=== PATIENT | female | born 1985 | race Native Hawaiian/Other Pacific Islander ===

== ENCOUNTER 2017-02-24 12:18 | Observation (INO) | payer OTHER ==
[~2017-02-24] VITALS: Ht 162.6 cm; Wt 148.1 kg
[~2017-02-24 12:18] MED LIST: LAMICTAL200 MG PO; PANT40TA PO; ZANTAC 75 PO
[2017-02-24 14:33] LABS: PLATELET COUNT 405 K/uL (152-353)
[2017-02-24 14:45] LABS: POTASSIUM 3.8 mmol/L (3.6-5.2); SODIUM 133 mmol/L (136-145)
[2017-02-24 16:00] VITALS: BP 156/81; TEMP 97.6
[2017-02-24 16:50] VITALS: BP 145/69; TEMP 97.5; Ht 162.6 cm; Wt 148.1 kg
[2017-02-24] MEDS ORDERED: FLUOXETINE20 MG PO (17:15)
[2017-02-24] MEDS ORDERED: MELATONIN5 M2 OR (17:18)
[2017-02-24] MEDS ORDERED: MONTELUKAST SOD10 MG PO (17:22)
[2017-02-24] MEDS ORDERED: GLUMETZA500 MG PO (18:05)
[2017-02-24 20:00] VITALS: BP 167/83; TEMP 97.6
[2017-02-25] VITALS: BP 148/81; TEMP 98.5
[2017-02-25 04:00] VITALS: BP 163/83; TEMP 97.4
[2017-02-25 08:25] VITALS: BP 147/93; TEMP 98.6
[2017-02-25 12:10] VITALS: BP 150/92; TEMP 98.3
[2017-02-25 12:17] LABS: PLATELET COUNT 386 K/uL (152-353)
[2017-02-25 12:28] LABS: POTASSIUM 3.5 mmol/L (3.6-5.2); SODIUM 139 mmol/L (136-145)
[2017-02-25 16:00] VITALS: BP 127/76; TEMP 98
[2017-02-25 20:00] VITALS: BP 166/98; TEMP 97.4
[2017-02-26] VITALS: BP 145/90; TEMP 97.7
[2017-02-26 04:00] VITALS: BP 126/81; TEMP 97.4
[2017-02-26 08:00] VITALS: BP 143/99; TEMP 98
== END 2017-02-26 11:35 | disposition home or self-care (01) ==
LOC: MED/SURG 12:18
PROVIDERS: ADMIT Family Medicine
DX: J15.1 Pneumonia due to Pseudomonas (principal); J45.901 Unspecified asthma with (acute) exacerbation
CPT/HCPCS: 80053; 85027; 87040; 87070; 87077; 87185; 87186; 87205; 90715; 93005; 94640; 94664; 94668; 94760; 96365; 96366; 99220; G0378; G0379; J0696; J2930

== ENCOUNTER 2017-03-12 10:47 | Outpatient (CLI) | payer OTHER ==
[~2017-03-12 10:47] MED LIST changes: +FLUOXETINE20 MG PO; +GLUMETZA500 MG PO; +MELATONIN5 M2 OR; +MONTELUKAST SOD10 MG PO
== END 2017-03-12 12:00 | disposition home or self-care (01) ==
LOC: RAD 10:47
DX: M25.561 Pain in right knee (principal)

== ENCOUNTER 2018-10-10 10:45 | Outpatient (CLI) | payer OTHER | END 2018-10-10 20:33 | disposition home or self-care (01) | LOC: RAD 10:45 | DX: J44.1 Chronic obstructive pulmonary disease with (acute) exacerbation (principal) ==

== ENCOUNTER 2020-05-17 10:51 | Emergency (ER) | payer OTHER ==
[~2020-05-17] VITALS: Ht 160 cm; Wt 127.0 kg
[2020-05-17 10:51] VITALS: TEMP 98.3
[2020-05-17 11:53] LABS: PLATELET COUNT 430 K/uL (152-353)
[2020-05-17 12:06] LABS: POTASSIUM 4.6 mmol/L (3.6-5.2); SODIUM 139 mmol/L (136-145)
[2020-05-17 15:20] VITALS: BP 134/86
== END 2020-05-17 15:20 | disposition home or self-care (01) ==
LOC: ED 11:12
PROVIDERS: Family Medicine
DX: G25.2 Other specified forms of tremor (principal); G40.109 Localization-related (focal) (partial) symptomatic epilepsy and epileptic syndromes with simple partial seizures, not intractable, without status epilepticus; Z11.59 Encounter for screening for other viral diseases
CPT/HCPCS: 36415; 80053; 81000; 82150; 82553; 83690; 83880; 84484; 85027; 87502; 87635; 87651; 99283; U00003

== ENCOUNTER 2020-06-11 09:02 | Outpatient (CLI) | payer OTHER | END 2020-06-11 23:18 | disposition home or self-care (01) | LOC: MRI 09:02 | DX: S09.90XA Unspecified injury of head, initial encounter (principal) ==

== ENCOUNTER 2020-07-12 10:28 | Outpatient (CLI) | payer OTHER | END 2020-07-12 23:13 | disposition home or self-care (01) | LOC: RAD 10:28 | DX: M79.671 Pain in right foot (principal) ==

== ENCOUNTER 2020-10-18 12:48 | Outpatient (CLI) | payer OTHER ==
[~2020-10-18] VITALS: Ht 165.1 cm; Wt 136.1 kg
[2020-10-18 13:51] LABS: PLATELET COUNT 341 K/uL (152-353)
[2020-10-18 14:10] LABS: POTASSIUM 4.3 mmol/L (3.6-5.2)
== END 2020-10-18 20:07 | disposition home or self-care (01) ==
LOC: INF 12:48
PROVIDERS: ATTEND Family Medicine
DX: U07.1 COVID-19 (principal); J45.998 Other asthma
CPT/HCPCS: 36591; 80053; 85027; 96365; Q0239

== ENCOUNTER 2021-04-01 12:48 | Emergency (ER) | payer OTHER ==
[~2021-04-01] VITALS: Ht 162.6 cm; Wt 159.7 kg
[2021-04-01 13:38] LABS: PLATELET COUNT 381 K/uL (152-353)
[2021-04-01 13:49] LABS: POTASSIUM 3.9 mmol/L (3.6-5.2)
[2021-04-02 01:00] LABS: PARTIAL THROMBOPLASTIN TIME 25.1 SECONDS (24.5-33.6)
[2021-04-02 01:40] VITALS: TEMP 97.9
[2021-04-02 02:50] VITALS: BP 118/69
== END 2021-04-02 02:50 | disposition short-term general hospital (02) ==
LOC: ED 12:48
PROVIDERS: Family Medicine
PROC: 0T9B70Z Drainage of Bladder with Drainage Device, Via Natural or Artificial Opening (ICD-10-PCS; principal; 2021-04-01)
DX: R41.82 Altered mental status, unspecified (principal); Z11.52 Encounter for screening for COVID-19
CPT/HCPCS: 36415; 51702; 80053; 80307; 80320; 80329; 81000; 85027; 85610; 85730; 87088; 87490; 87590; 87635; 93005; 96360; 96372; 96374; 99285; J1630; J2405; J3486; U0003

== ENCOUNTER 2021-12-08 14:18 | Outpatient (CLI) | payer OTHER ==
[2021-12-08 14:52] LABS: PLATELET COUNT 453 K/uL (152-353)
[2021-12-08 14:59] LABS: POTASSIUM 3.6 mmol/L (3.6-5.2)
== END 2021-12-08 19:06 | disposition home or self-care (01) ==
LOC: RAD 14:18
PROVIDERS: ATTEND Nurse Practitioner Family
DX: Z03.89 Encounter for observation for other suspected diseases and conditions ruled out (principal); F44.5 Conversion disorder with seizures or convulsions
CPT/HCPCS: 36415; 80053; 82542; 82728; 85027; 85379; 86140

== ENCOUNTER 2021-12-31 12:59 | Observation (INO) | payer OTHER ==
[~2021-12-31] VITALS: Ht 162.6 cm; Wt 158.4 kg
[~2021-12-31 12:59] MED LIST changes: -PANT40TA PO; +PANTOPRAZOLE SO40 M2 PO
[2021-12-31 13:56] LABS: PLATELET COUNT 301 K/uL (152-353)
[2021-12-31 14:13] LABS: POTASSIUM 3.7 mmol/L (3.6-5.2); SODIUM 144 mmol/L (136-145)
[2021-12-31 14:24] VITALS: BP 118/88; TEMP 98.3; Ht 162.6 cm; Wt 158.4 kg
[2021-12-31 16:00] VITALS: BP 115/82; TEMP 98.3
[2021-12-31] MEDS ORDERED: FLONASE SE27.5 MCG/S NAS (16:24)
[2021-12-31] MEDS ORDERED: MOBIC15 MG PO (16:25)
[2021-12-31] MEDS ORDERED: VITAMIN D35000 UNI1 PO (16:26)
[2021-12-31] MEDS ORDERED: LEVO0.0529 PO (16:26)
[2021-12-31] MEDS ORDERED: FLUTMIS14 INH (16:27)
[2021-12-31] MEDS ORDERED: CIPROFLOXACIN/D1 SUS OTIC (16:28)
[2021-12-31 20:00] VITALS: BP 130/78; TEMP 97.3
[2022-01-01] VITALS: BP 146/83; TEMP 97.3
[2022-01-01 04:00] VITALS: BP 104/60; TEMP 97.4
[2022-01-01 05:38] LABS: PLATELET COUNT 327 K/uL (152-353)
[2022-01-01 05:52] LABS: POTASSIUM 3.4 mmol/L (3.6-5.2)
[2022-01-01 08:00] VITALS: BP 129/78; TEMP 97.6
[2022-01-01] MEDS ORDERED: SPIRIVA HANDIH18 MCG INH (08:02)
[2022-01-01] MEDS ORDERED: METF500T PO (08:06)
[2022-01-01] MEDS ORDERED: NYST100010 EX (08:08)
[2022-01-01] MEDS ORDERED: ATIVAN2 MG PO (08:09)
[2022-01-01] MEDS ORDERED: KETOROLAC0.5 % OPTH (08:10)
[2022-01-01] MEDS ORDERED: PREDNISOLONE ACET1 % OPTH (08:13)
[2022-01-01] MEDS ORDERED: TRAMADOL HYDROC50 MG PO (08:16)
[2022-01-01] MEDS ORDERED: PROMETHAZINE PO (08:16)
[2022-01-01] MEDS ORDERED: ONDA4TAB3 PO (08:17)
[2022-01-01] MEDS ORDERED: ARIPIPRAZOLE10 MG PO (08:19)
[2022-01-01] MEDS ORDERED: LAMOTRIGINE200 MG PO (08:20)
[2022-01-01] MEDS ORDERED: FLUOXETINE20 M1 PO (08:21)
[2022-01-01] MEDS ORDERED: MONTELUKAST SOD10 MG PO (08:21)
[2022-01-01 12:00] VITALS: BP 130/65; TEMP 98.4
== END 2022-01-01 13:28 | disposition home or self-care (01) ==
LOC: MED/SURG 12:59
PROVIDERS: ADMIT Family Medicine; ATTEND Family Medicine
DX: J44.0 Chronic obstructive pulmonary disease with (acute) lower respiratory infection (principal); J18.8 Other pneumonia, unspecified organism; J45.998 Other asthma; J44.1 Chronic obstructive pulmonary disease with (acute) exacerbation; R07.89 Other chest pain; I10 Essential (primary) hypertension; E03.8 Other specified hypothyroidism; E66.01 Morbid (severe) obesity due to excess calories; Z68.43 Body mass index [BMI] 50.0-59.9, adult
CPT/HCPCS: 80053; 82550; 83735; 84100; 84484; 85027; 87040; 87635; 90686; 90732; 93005; 94640; 94664; 94760; 96367; 96372; 96374; 96375; 99220; G0378; G0379; J0456; J0696; J2930; U0003

== ENCOUNTER 2022-06-19 13:09 | Outpatient (CLI) | payer OTHER ==
[~2022-06-19 13:09] MED LIST changes: +ARIPIPRAZOLE10 MG PO; +ATIVAN2 MG PO; +CIPROFLOXACIN/D1 SUS OTIC; +FLONASE SE27.5 MCG/S NAS; +FLUOXETINE20 M1 PO; +FLUTMIS14 INH; +KETOROLAC0.5 % OPTH; +LAMOTRIGINE200 MG PO; +LEVO0.0529 PO; +METF500T PO; +MOBIC15 MG PO; +NYST100010 EX; +ONDA4TAB3 PO; +PREDNISOLONE ACET1 % OPTH; +PROMETHAZINE PO; +SPIRIVA HANDIH18 MCG INH; +TRAMADOL HYDROC50 MG PO; +VITAMIN D35000 UNI1 PO
== END 2022-06-19 18:59 | disposition home or self-care (01) ==
LOC: RAD 13:09
PROVIDERS: ATTEND Family Medicine
DX: M25.561 Pain in right knee (principal)

== ENCOUNTER 2022-07-28 12:51 | Outpatient (CLI) | payer OTHER ==
[2022-07-28 13:07] LABS: PLATELET COUNT 374 K/uL (152-353)
[2022-07-28 13:14] LABS: POTASSIUM 4.8 mmol/L (3.6-5.2)
== END 2022-07-28 20:23 | disposition home or self-care (01) ==
LOC: LABW 12:51
PROVIDERS: ATTEND Nurse Practitioner Family
DX: E11.65 Type 2 diabetes mellitus with hyperglycemia (principal)
CPT/HCPCS: 36415; 80053; 82150; 83605; 83690; 85027

== ENCOUNTER 2022-08-18 10:43 | Outpatient (CLI) | payer OTHER | END 2022-08-18 19:32 | disposition home or self-care (01) | LOC: MRI 10:43 | PROVIDERS: ATTEND Nurse Practitioner Family | DX: G40.209 Localization-related (focal) (partial) symptomatic epilepsy and epileptic syndromes with complex partial seizures, not intractable, without status epilepticus (principal) ==

== ENCOUNTER 2023-03-11 13:29 | Observation (INO) | payer OTHER ==
[~2023-03-11] VITALS: Ht 162.6 cm; Wt 146.1 kg
[~2023-03-11 13:29] MED LIST changes: +FLUOXETINE HYDR20 MG PO; -FLUOXETINE20 M1 PO; -LAMOTRIGINE200 MG PO; -ONDA4TAB3 PO; +ONDANSETRON HCL ODT PO
[2023-03-11 14:25] LABS: PLATELET COUNT 372 K/uL (152-353)
[2023-03-11 14:37] VITALS: BP 138/60; TEMP 97.7; Ht 162.6 cm; Wt 146.1 kg
[2023-03-11 14:38] LABS: POTASSIUM 3.4 mmol/L (3.6-5.2)
[2023-03-11 16:00] VITALS: BP 131/63; TEMP 97.9
[2023-03-11 19:52] VITALS: BP 125/68; TEMP 96.4
[2023-03-12] VITALS: BP 119/71; TEMP 98.6
[2023-03-12 04:00] VITALS: BP 118/57; TEMP 98.1
[2023-03-12 08:00] VITALS: BP 95/55; TEMP 97.7
[2023-03-12 12:00] VITALS: BP 97/63; TEMP 97.7
[2023-03-15] MEDS ORDERED: FLUC150T PO (17:49)
[2023-03-15] MEDS ORDERED: CEPH500C20 PO (17:50)
[2023-03-15] MEDS ORDERED: AZO CRANBERRY PO (17:52)
== END 2023-03-12 16:32 | disposition home or self-care (01) ==
LOC: MED/SURG 13:29
PROVIDERS: ADMIT Internal Medicine; ATTEND Internal Medicine
DX: K85.80 Other acute pancreatitis without necrosis or infection (principal); E11.65 Type 2 diabetes mellitus with hyperglycemia; F31.89 Other bipolar disorder; E66.01 Morbid (severe) obesity due to excess calories; Z68.43 Body mass index [BMI] 50.0-59.9, adult; R85.0 Abnormal level of enzymes in specimens from digestive organs and abdominal cavity; R11.2 Nausea with vomiting, unspecified
CPT/HCPCS: 36415; 80053; 80061; 81002; 82150; 82948; 83690; 85027; 96361; 96374; 96375; 99220; 99221; G0378; G0379; J2270; J2405

== ENCOUNTER 2023-03-17 15:42 | Observation (INO) | payer OTHER ==
[~2023-03-17] VITALS: Ht 162.6 cm; Wt 154.3 kg
[~2023-03-17 15:42] MED LIST changes: +AZO CRANBERRY PO; +CEPH500C20 PO; +FLUC150T PO
[2023-03-17 16:49] LABS: PLATELET COUNT 432 K/uL (152-353)
[2023-03-17 17:01] LABS: POTASSIUM 3.2 mmol/L (3.6-5.2)
[2023-03-17] MEDS ORDERED: PROMETHAZINE12.5 M3 PO (17:53)
[2023-03-17] MEDS ORDERED: BUSPIRONE HYDROC5 MG PO (17:53)
[2023-03-17] MEDS ORDERED: TRIAMCINOLON0.025 % TOP (17:54)
[2023-03-17] MEDS ORDERED: SPIRIVA HANDIH18 MCG INH (17:55)
[2023-03-17] MEDS ORDERED: ALBU90AE13 INH (17:55)
[2023-03-17] MEDS ORDERED: ALBUTEROL0.083 % INH (17:56)
[2023-03-17] MEDS ORDERED: DICLOFENAC SODIUM1 % TD (17:56)
[2023-03-17] MEDS ORDERED: SM NASAL DECONG10 MG PO (17:57)
[2023-03-17] MEDS ORDERED: NASACORT A55 MCG/ACT NAS (17:58)
[2023-03-17] MEDS ORDERED: CETI10TA PO (18:00)
[2023-03-17] MEDS ORDERED: LORA1TAB17 PO (18:00)
[2023-03-17] MEDS ORDERED: VICTOZA18 MG/3 ML SC (18:00)
[2023-03-17] MEDS ORDERED: GLIPIZIDE PO (18:01)
[2023-03-17] MEDS ORDERED: EPIPEN 2-P0.3 MG/0.3 INJ (18:02)
[2023-03-17 18:08] VITALS: BP 135/87; TEMP 98.9; Ht 162.6 cm; Wt 154.3 kg
[2023-03-17 20:00] VITALS: BP 125/70; TEMP 97.5
[2023-03-18] VITALS: BP 103/50; TEMP 97.8
[2023-03-18 04:00] VITALS: BP 85/50; TEMP 98.1
[2023-03-18 05:02] LABS: PLATELET COUNT 318 K/uL (152-353)
[2023-03-18 05:11] LABS: POTASSIUM 3.7 mmol/L (3.6-5.2)
[2023-03-18 08:00] VITALS: BP 109/63; TEMP 97.5
[2023-03-18 12:00] VITALS: BP 114/55; BP 114/68; TEMP 98.1; TEMP 99.2
== END 2023-03-18 14:55 | disposition home or self-care (01) ==
LOC: MED/SURG 15:42
PROVIDERS: ADMIT Internal Medicine; ATTEND Internal Medicine
DX: J45.21 Mild intermittent asthma with (acute) exacerbation (principal); E11.9 Type 2 diabetes mellitus without complications; E66.9 Obesity, unspecified; Z68.43 Body mass index [BMI] 50.0-59.9, adult; D64.89 Other specified anemias
CPT/HCPCS: 36415; 80053; 81002; 82150; 82948; 83690; 83735; 85027; 96360; 96361; 99220; 99221; G0378; G0379; J2405; J7120

== ENCOUNTER 2023-05-19 12:45 | Observation (INO) | payer OTHER ==
[~2023-05-19] VITALS: Ht 162.6 cm; Wt 149.3 kg
[~2023-05-19 12:45] MED LIST changes: +ALBU90AE13 INH; +ALBUTEROL0.083 % INH; +BUSPIRONE HYDROC5 MG PO; +CETI10TA PO; +DICLOFENAC SODIUM1 % TD; +EPIPEN 2-P0.3 MG/0.3 INJ; +GLIPIZIDE PO; +LORA1TAB17 PO; +NASACORT A55 MCG/ACT NAS; +PROMETHAZINE12.5 M3 PO; +SM NASAL DECONG10 MG PO; +TRIAMCINOLON0.025 % TOP; +VICTOZA18 MG/3 ML SC
[2023-05-19 12:58] VITALS: BP 139/78; TEMP 98.3
[2023-05-19 13:14] LABS: PLATELET COUNT 471 K/uL (152-353)
[2023-05-19 13:29] LABS: POTASSIUM 3.9 mmol/L (3.6-5.2)
[2023-05-19 14:00] VITALS: BP 136/79
[2023-05-19 23:57] VITALS: BP 120/59; TEMP 98.1
[2023-05-20 04:00] VITALS: BP 99/46; TEMP 97.8
[2023-05-20 06:07] LABS: PLATELET COUNT 463 K/uL (152-353)
[2023-05-20 06:20] LABS: POTASSIUM 4.8 mmol/L (3.6-5.2)
[2023-05-20 08:00] VITALS: BP 130/70; TEMP 97.5
[2023-05-20] MEDS ORDERED: ACET-689 PO (10:25)
[2023-05-20] MEDS ORDERED: Z-PAK (10:26)
[2023-05-20] MEDS ORDERED: METHOCARBAMOL PO (10:27)
[2023-05-20 12:00] VITALS: BP 143/84
[2023-05-20 16:00] VITALS: BP 149/77; TEMP 97.7
[2023-05-20 20:00] VITALS: BP 144/69; TEMP 97.8
[2023-05-20 23:58] VITALS: BP 155/66; TEMP 97.6
[2023-05-21 03:39] VITALS: BP 137/75; TEMP 97.6
[2023-05-21 05:57] LABS: PLATELET COUNT 497 K/uL (152-353)
[2023-05-21 06:09] LABS: POTASSIUM 5.3 mmol/L (3.6-5.2)
[2023-05-21 08:00] VITALS: BP 117/78; TEMP 97.8
[2023-05-21 12:00] VITALS: BP 150/83; TEMP 98.4
== END 2023-05-21 13:56 | disposition home or self-care (01) ==
LOC: ED 12:45 → MED/SURG 19:33
PROVIDERS: Family Medicine; ADMIT Internal Medicine Endocrinology, Diabetes & Metabolism; ATTEND Internal Medicine Endocrinology, Diabetes & Metabolism
DX: J45.901 Unspecified asthma with (acute) exacerbation (principal); F31.89 Other bipolar disorder; F41.8 Other specified anxiety disorders; E11.9 Type 2 diabetes mellitus without complications; E03.8 Other specified hypothyroidism; K21.9 Gastro-esophageal reflux disease without esophagitis; J30.2 Other seasonal allergic rhinitis; D63.1 Anemia in chronic kidney disease; J96.01 Acute respiratory failure with hypoxia; N18.9 Chronic kidney disease, unspecified
CPT/HCPCS: 36415; 80048; 80053; 82948; 83605; 85027; 87040; 94664; 94760; 96365; 96367; 96372; 96374; 96375; 96376; 99221; 99284; G0378; J0456; J1815; J2920; J2930

== ENCOUNTER 2023-07-20 12:44 | Outpatient (CLI) | payer OTHER ==
[~2023-07-20 12:44] MED LIST changes: +ACET-689 PO; +METHOCARBAMOL PO; +Z-PAK
[2023-07-20 13:32] LABS: PLATELET COUNT 426 K/uL (152-353)
== END 2023-07-20 19:00 | disposition home or self-care (01) ==
LOC: RAD 12:44
PROVIDERS: ATTEND Nurse Practitioner Family
DX: J20.8 Acute bronchitis due to other specified organisms (principal); J01.90 Acute sinusitis, unspecified
CPT/HCPCS: 36415; 85027

== ENCOUNTER 2023-07-27 15:05 | Observation (INO) | payer OTHER ==
[~2023-07-27] VITALS: Ht 162.6 cm; Wt 158.1 kg
[2023-07-27 15:09] VITALS: BP 158/81; TEMP 98.6
[2023-07-27 15:33] LABS: PLATELET COUNT 461 K/uL (152-353)
[2023-07-27 15:43] LABS: POTASSIUM 4.4 mmol/L (3.6-5.2); SODIUM 141 mmol/L (136-145)
[2023-07-27 19:00] VITALS: BP 109/82
[2023-07-27 20:00] VITALS: BP 116/78
[2023-07-27 21:00] VITALS: BP 123/81
[2023-07-28] VITALS: BP 128/71; TEMP 97.5
[2023-07-28 01:43] VITALS: BP 171/85; TEMP 98.5; Ht 162.6 cm; Wt 158.1 kg
[2023-07-28 03:42] VITALS: BP 119/67; TEMP 97.6
[2023-07-28 04:43] LABS: PLATELET COUNT 434 K/uL (152-353)
[2023-07-28 04:56] LABS: POTASSIUM 4.4 mmol/L (3.6-5.2)
[2023-07-28 08:00] VITALS: BP 118/79
[2023-07-28] MEDS ORDERED: ZYPREXA ZYDI10 MG PO (08:35)
[2023-07-28] MEDS ORDERED: CLON1TAB18 PO (08:35)
[2023-07-28] MEDS ORDERED: VITAMIN D31000 UNI4 PO (08:36)
[2023-07-28 11:35] VITALS: BP 120/75; TEMP 97.5
[2023-07-28 16:00] VITALS: BP 137/74; TEMP 97.8
== END 2023-07-28 17:48 | disposition home or self-care (01) ==
LOC: ED 15:05 → MED/SURG 18:46
PROVIDERS: Family Medicine; ADMIT Internal Medicine Endocrinology, Diabetes & Metabolism; ATTEND Internal Medicine Endocrinology, Diabetes & Metabolism
DX: J45.901 Unspecified asthma with (acute) exacerbation (principal); J96.01 Acute respiratory failure with hypoxia; D64.89 Other specified anemias; E11.9 Type 2 diabetes mellitus without complications; E03.8 Other specified hypothyroidism; K21.9 Gastro-esophageal reflux disease without esophagitis; J30.2 Other seasonal allergic rhinitis; F31.89 Other bipolar disorder; F41.9 Anxiety disorder, unspecified
CPT/HCPCS: 36415; 80048; 80053; 82948; 84484; 84702; 85027; 93005; 94664; 94760; 96365; 96372; 96374; 96375; 96376; 99221; 99284; G0378; J0456; J1650; J1815; J2405; J2920; J2930